=== PATIENT | male | born 1985 | race Caucasian/White ===

== ENCOUNTER 2021-05-31 15:50 | Emergency (ER) | payer BC ==
--- NOTE | 2021-05-31 16:01 | EDM.PDOC ---
ED HPI GENERAL MEDICAL PROBLEM - General Chief Complaint: Gastrointestinal Problem Stated Complaint: VOMITING, DEHYDRATED Time Seen by Provider: 05/31/21 15:58 Source of Information: Reports: Patient History Limitations: Reports: No Limitations - History of Present Illness INITIAL COMMENTS - FREE TEXT/NARRATIVE: HISTORY AND PHYSICAL: History of present illness: Patient is a 36-year-old male who presents to the emergency room with complaints of nausea, vomiting and dizziness since waking up this morning for work. He is concerned that he is dehydrated. Patient denies any fever, chills, headache, change in vision, syncope or near syncope. Denies any chest pain, back pain, shortness of breath or cough. Denies any abdominal pain, diarrhea, constipation or dysuria. Has not noted any blood in urine or stool. Patient states he has been on Suboxone over the past 3 years, no new changes. Denies any alcohol abuse, but does occasionally smoke marijuanna. States he has not had any marijuana in a few days. No recent travel. No recent exposure to anyone who has been ill. Review of systems: As per history of present illness and below otherwise all systems reviewed and negative. Past medical history: As per history of present illness and as reviewed below otherwise noncontributory. Surgical history: As per history of present illness and as reviewed below otherwise noncontributory. Social history: See social history for further information Family history: As per history of present illness and as reviewed below otherwise noncontributory. Physical exam: General: Well developed and thin appearing 36-year-old male. Alert and orientated x 3. Nontoxic in appearance but in moderate distress due to symptoms. Vital signs are stable and have been reviewed by me. Nursing notes were reviewed. HEENT: Atraumatic, normocephalic, pupils equal and reactive bilaterally, negative for conjunctival pallor or scleral icterus, mucous membranes dry/tacky, TMs normal bilaterally, throat clear, neck supple, nontender, trachea midline. No drooling or trismus noted. No meningeal signs. No hot potato voice noted. Lungs: Clear to auscultation bilaterally. No wheezes, rales, or rhonchi. Chest nontender. Normal work of breathing, no accessory muscles used. Heart: S1S2, regular rate and rhythm without overt murmur, gallops, or rubs. No JVD. No peripheral edema Abdomen: Soft, nondistended, nontender. Normoactive bowel sounds. Negative for masses or costovertebral tenderness. Skin: Pale, intact, warm, dry. No lesions or rashes noted. Hematologic: No petechiae or purpra. Mucosa appropriate color and normal nail bed color and refill. Extremities: Atraumatic, moves all extremities per self without difficulty or deficits, negative for cords or calf pain. Neurovascular unremarkable. Neuro: Awake, alert, oriented. Cranial nerves II through XII unremarkable. Cerebellum unremarkable. Motor and sensory unremarkable throughout. Exam nonfocal. Psychiatric: Mood and affect are appropriate. Normal thought process. Answering questions appropriately. Please note that the patient was seen and evaluated during the 2019 SARS-CoV-2 novel coronavirus pandemic period. Community viral transmission is ongoing at time of this encounter and the emergency department is operating under pandemic response procedures. Medical Decision Making: Patient is a 36-year-old male who presents to the emergency room with complaints of nausea, vomiting and concerns of dehydration. Symptoms started this morning and have not improved throughout the day. Patient is thrashing on the cot and unable to sit still as he states he cannot stop vomiting. Patient's vital signs are stable, we will do basic lab work along with lactate/blood cultures x2. Patient is agreeable to receiving fluids and Zofran. Patient does have a slight leukocytosis. No neutrophils. It is likely due to his dehydration. His lactate is 3.8. We will redraw this as he does feel much improved after IV fluids and Zofran. CT shows no acute process. Repeat lactate has greatly improved. Patient feels better, has not had any nausea or vomiting in the last hour. He feels comfortable being discharged home. I have talked with the patient about today's findings, in addition to providing specific details for plan of care. Reassessment at the time of disposition demonstrates that the patient is in no acute distress. The patient is stable for discharge, counseling was provided and we discussed in great detail signs and symptoms that would prompt them to return to the Emergency Department. Medication, follow up and supportive care measures were reviewed and discussed. Voices understanding and is agreeable to plan of care. Denies any further questions or concerns at this time. Diagnostics: CBC, CMP, Mg, Troponin, EKG, CXR, Lipase, UA, BC x 2, Lactate Therapeutics: IV fluids, Zofran Prescription: Zofran Impression: Nausea and Vomiting Plan: 1. You were evaluated today on an emergent basis. Your labs improved after IV fluids. Normal CT scan of abdomen/pelvis. Zofran has been prescribed, he can use this as needed for nausea management. [place] diet, advance as tolerated. Please make sure you are drinking small frequent sips of fluids to prevent dehydration. 2. You can alternate Tylenol and ibuprofen as needed for pain and fever management. 3. We encourage you to follow up with your primary care provider and/or recommended specialist in the next few days for re-evaluation and further care/management. 4. If your symptoms should worsen, new symptoms develop or any of the signs and symptoms we discussed should arise please return to the emergency room or call 911 (if needed). Definitive disposition and diagnosis as appropriate pending reevaluation and review of above. Bilateral Chest Pain Score (Numeric/FACES): 7 - Related Data Allergies Allergy/AdvReac Type Severity Reaction Status Date / Time amoxicillin Allergy Cannot Verified 05/31/21 16:04 Remember penicillin Allergy Cannot Verified 05/31/21 16:04 Remember Home Meds: Home Meds Buprenorphine HCl/Naloxone HCl [Buprenorphine-Nalox 8-2 mg Tab] 1 dose PO DAILY 05/31/21 [History] Ondansetron [Zofran ODT] 4 mg PO Q6H PRN #8 tab.dis 05/31/21 [Rx] Past Medical History - Past Health History Medical/Surgical History: Denies Medical/Surgical History ED ROS GENERAL - Review of Systems Review Of Systems: Comprehensive ROS is negative, except as noted in HPI. ED EXAM, GI/ABD - Physical Exam Exam: See Below (See dictation) Course - Vital Signs Last Recorded V/S: Last Vital Signs Temp 97.8 F 05/31/21 17:35 Pulse 54 L 05/31/21 17:35 Resp 18 05/31/21 17:35 BP 124/64 05/31/21 17:35 Pulse Ox 99 05/31/21 17:35 - Orders/Labs/Meds Orders: Active Orders 24 hr Category Date Time Status CULTURE BLOOD [BC] Stat Lab 05/31/21 17:51 Received CULTURE BLOOD [BC] Stat Lab 05/31/21 17:54 Results DRUG SCREEN, URINE [URCHEM] Stat Lab 05/31/21 17:54 Ordered REFLEX LACTIC ACID YES OR NO [CHEM] Routine Lab 05/31/21 17:38 Received UA RFX WICHO AND CULT IF INDIC [URIN] Stat Lab 05/31/21 16:04 Ordered Blood Culture x2 Reflex Set [OM.PC] Stat Oth 05/31/21 16:07 Ordered Labs: Laboratory Tests 05/31/21 05/31/21 05/31/21 Range/Units 16:40 16:40 16:40 WBC 13.67 H (4.0-11.0) K/uL RBC 4.60 (4.50-5.90) M/uL Hgb 14.9 (13.0-17.0) g/dL Hct 42.8 (38.0-50.0) % MCV 93.0 (80.0-98.0) fL MCH 32.4 H (27.0-32.0) pg MCHC 34.8 (31.0-37.0) g/dL RDW Std Deviation 46.2 (28.0-62.0) fl RDW Coeff of Aayush 14 (11.0-15.0) % Plt Count 333 (150-400) K/uL MPV 9.90 (7.40-12.00) fL Neut % (Auto) 78.4 (48.0-80.0) % Lymph % (Auto) 15.4 L (16.0-40.0) % Maverick % (Auto) 5.9 (0.0-15.0) % Eos % (Auto) 0.1 (0.0-7.0) % Baso % (Auto) 0.2 (0.0-1.5) % Neut # (Auto) 10.7 H (1.4-5.7) K/uL Lymph # (Auto) 2.1 (0.6-2.4) K/uL Maverick # (Auto) 0.8 (0.0-0.8) K/uL Eos # (Auto) 0.0 (0.0-0.7) K/uL Baso # (Auto) 0.0 (0.0-0.1) K/uL Nucleated RBC % 0.0 /100WBC Nucleated RBCs # 0 K/uL Sodium 139 (136-148) mmol/L Potassium 4.2 (3.5-5.1) mmol/L Chloride 102 (98-107) mmol/L Carbon Dioxide 16.1 L (21.0-32.0) mmol/L BUN 15 (7.0-18.0) mg/dL Creatinine 1.0 (0.8-1.3) mg/dL Est Cr Clr Drug Dosing 89.96 mL/min Estimated GFR (MDRD) > 60.0 ml/min Glucose 161 H (74-106) mg/dL Lactic Acid 3.8 H* (0.4-2.0) mmol/L Calcium 9.8 (8.5-10.1) mg/dL Magnesium 1.7 L (1.8-2.4) mg/dL Total Bilirubin 0.8 (0.2-1.0) mg/dL AST 25 (15-37) IU/L ALT 20 (14-63) IU/L Alkaline Phosphatase 127 H (46-116) U/L Troponin I < 0.050 (0.000-0.056) ng/mL Total Protein 7.0 (6.4-8.2) g/dL Albumin 4.0 (3.4-5.0) g/dL Globulin 3.0 (2.6-4.0) g/dL Albumin/Globulin Ratio 1.3 (0.9-1.6) Lipase 11 L (73-393) U/L 05/31/21 Range/Units 19:14 WBC (4.0-11.0) K/uL RBC (4.50-5.90) M/uL Hgb (13.0-17.0) g/dL Hct (38.0-50.0) % MCV (80.0-98.0) fL MCH (27.0-32.0) pg MCHC (31.0-37.0) g/dL RDW Std Deviation (28.0-62.0) fl RDW Coeff of Aayush (11.0-15.0) % Plt Count (150-400) K/uL MPV (7.40-12.00) fL Neut % (Auto) (48.0-80.0) % Lymph % (Auto) (16.0-40.0) % Maverick % (Auto) (0.0-15.0) % Eos % (Auto) (0.0-7.0) % Baso % (Auto) (0.0-1.5) % Neut # (Auto) (1.4-5.7) K/uL Lymph # (Auto) (0.6-2.4) K/uL Maverick # (Auto) (0.0-0.8) K/uL Eos # (Auto) (0.0-0.7) K/uL Baso # (Auto) (0.0-0.1) K/uL Nucleated RBC % /100WBC Nucleated RBCs # K/uL Sodium (136-148) mmol/L Potassium (3.5-5.1) mmol/L Chloride (98-107) mmol/L Carbon Dioxide (21.0-32.0) mmol/L BUN (7.0-18.0) mg/dL Creatinine (0.8-1.3) mg/dL Est Cr Clr Drug Dosing mL/min Estimated GFR (MDRD) ml/min Glucose (74-106) mg/dL Lactic Acid 1.7 (0.4-2.0) mmol/L Calcium (8.5-10.1) mg/dL Magnesium (1.8-2.4) mg/dL Total Bilirubin (0.2-1.0) mg/dL AST (15-37) IU/L ALT (14-63) IU/L Alkaline Phosphatase (46-116) U/L Troponin I (0.000-0.056) ng/mL Total Protein (6.4-8.2) g/dL Albumin (3.4-5.0) g/dL Globulin (2.6-4.0) g/dL Albumin/Globulin Ratio (0.9-1.6) Lipase (73-393) U/L Meds: Medications Discontinued Medications Generic Name Dose Route Start Last Admin Trade Name Freq PRN Reason Stop Dose Admin Sodium Chloride 1,000 mls @ 999 mls/hr 05/31/21 16:04 05/31/21 16:43 Normal Saline IV 05/31/21 17:04 999 mls/hr STAT ONE Administration Sodium Chloride 1,000 mls @ 999 mls/hr 05/31/21 17:43 05/31/21 18:15 Normal Saline IV 05/31/21 18:43 999 mls/hr STAT ONE Administration Iopamidol 75 ml 05/31/21 18:41 05/31/21 18:42 Iopamidol 755 Mg/Ml 500 Ml Multipack Bottle IVPUSH 05/31/21 18:42 75 ml ONETIME STA Administration Ondansetron HCl 4 mg 05/31/21 16:09 05/31/21 16:43 Ondansetron 4 Mg/2 Ml Sdv IVPUSH 05/31/21 16:10 4 mg ONETIME ONE Administration Departure - Departure Time of Disposition: 19:54 Disposition: Home, Self-Care 01 Clinical Impression: Nausea & vomiting Qualifiers: Vomiting type: unspecified Vomiting Intractability: non-intractable Qualified Code(s): R11.2 - Nausea with vomiting, unspecified - Discharge Information Prescriptions: Ondansetron [Zofran ODT] 4 mg PO Q6H PRN #8 tab.dis PRN Reason: Nausea Instructions: Nausea and Vomiting, Adult, [id number] Referrals: PCP,None [Primary Care Provider] - Forms: ED Department Discharge Additional Instructions: The following information is given to patients seen in the emergency department who are being discharged to home. This information is to outline your options for follow-up care. We provide all patients seen in our emergency department with a follow-up referral. The need for follow-up, as well as the timing and circumstances, are variable depending upon the specifics of your emergency department visit. If you don't have a primary care physician on staff, we will provide you with a referral. We always advise you to contact your personal physician following an emergency department visit to inform them of the circumstance of the visit and for follow-up with them and/or the need for any referrals to a consulting specialist. The emergency department will also refer you to a specialist when appropriate. This referral assures that you have the opportunity for follow-up care with a specialist. All of these measure are taken in an effort to provide you with optimal care, which includes your follow-up. Under all circumstances we always encourage you to contact your private physician who remains a resource for coordinating your care. When calling for follow-up care, please make the office aware that this follow-up is from your recent emergency room visit. If for any reason you are refused follow-up, please contact the [facility] Emergency Department at and asked to speak to the emergency department charge nurse. [facility] [address] [place] [address] [facility] [address] [place] [address] Thank you for choosing the [facility] emergency department in [place] for your medical needs today. It was a pleasure caring for you. Today you were seen in the emergency department for nausea and vomiting. 1. You were evaluated today on an emergent basis. Your labs improved after IV fluids. Normal CT scan of abdomen/pelvis. Zofran has been prescribed, he can use this as needed for nausea management. [place] diet, advance as tolerated. Please make sure you are drinking small frequent sips of fluids to prevent dehydration. 2. You can alternate Tylenol and ibuprofen as needed for pain and fever management. 3. We encourage you to follow up with your primary care provider and/or recommended specialist in the next few days for re-evaluation and further care/management. 4. If your symptoms should worsen, new symptoms develop or any of the signs and symptoms we discussed should arise please return to the emergency room or call 911 (if needed). Sepsis Event Note (ED) - Focused Exam Vital Signs: Vital Signs Temp Pulse Resp BP Pulse Ox 05/31/21 17:35 97.8 F 54 L 18 124/64 99 05/31/21 16:05 97.8 F 67 16 134/58 L 100 - My Orders Last 24 Hours: My Active Orders 05/31/21 16:04 UA RFX WICHO AND CULT IF INDIC [URIN] Stat 05/31/21 16:07 Blood Culture x2 Reflex Set [OM.PC] Stat 05/31/21 17:38 REFLEX LACTIC ACID YES OR NO [CHEM] Routine 05/31/21 17:51 CULTURE BLOOD [BC] Stat 05/31/21 17:54 CULTURE BLOOD [BC] Stat DRUG SCREEN, URINE [URCHEM] Stat - Assessment/Plan Last 24 Hours: My Active Orders 05/31/21 16:04 UA RFX WICHO AND CULT IF INDIC [URIN] Stat 05/31/21 16:07 Blood Culture x2 Reflex Set [OM.PC] Stat 05/31/21 17:38 REFLEX LACTIC ACID YES OR NO [CHEM] Routine 05/31/21 17:51 CULTURE BLOOD [BC] Stat 05/31/21 17:54 CULTURE BLOOD [BC] Stat DRUG SCREEN, URINE [URCHEM] Stat
[2021-05-31] MEDS ORDERED: Sodium Chloride 0.9% 1,000 ML IV ONE ×2 (16:04→17:43)
[2021-05-31] MEDS ORDERED: Ondansetron 4 MG/2 ML SDV IVPUSH ONE (16:09)
[2021-05-31 17:24] LABS: BLOOD UREA NITROGEN,BUN 15 mg/dL (7.0-18.0); CARBON DIOXIDE,CO2 16.1 mmol/L (21.0-32.0); CHLORIDE,CL 102 mmol/L (98-107); GLUCOSE RANDOM 161 mg/dL (74-106); LIPASE 11 U/L (73-393); POTASSIUM,K 4.2 mmol/L (3.5-5.1); SODIUM,NA 139 mmol/L (136-148)
--- NOTE | 2021-05-31 17:38 | PCM.EKG ---
#1 Interpretation EKG Date: 05/31/21 Time: 16:00 Rhythm: NSR Rate (Beats/Min): 63 ST-T: Normal
--- NOTE | 2021-05-31 18:12 | CR ---
INDICATION: Pain, shortness of breath TECHNIQUE: Portable upright AP view of the chest COMPARISON: None FINDINGS: The lungs are clear. There is no sizable pleural effusion or pneumothorax. The cardiomediastinal silhouette is normal. The visualized osseous structures are unremarkable. IMPRESSION: No acute intrathoracic process. Dictated by Augusta Jones MD @ 05/31/2021 6:10:02 PM (Electronically Signed)
[2021-05-31] MEDS ORDERED: Iopamidol 755 MG/ML 500 ML Multipack Bottle IVPUSH STA (18:41)
--- NOTE | 2021-05-31 19:06 | CT ---
Indication: Intractable nausea and vomiting Technique: Contrast enhanced axial CT imaging through the abdomen and pelvis. 75 mL Isovue 370 contrast agent was administered intravenously. Sagittal and coronal reconstructions are provided. Comparison: None Findings: No abnormalities are demonstrated relating to the liver, gallbladder, spleen, pancreas, adrenal glands, and kidneys. The portal vein is patent. The abdominal aorta is normal in caliber. There is no abdominal or pelvic lymphadenopathy. The urinary bladder is unremarkable. The stomach and duodenum are unremarkable. There is no small bowel wall thickening or abnormal distention. The appendix is noninflamed. There is no colonic wall thickening, mesenteric edema, or intraperitoneal free fluid. The osseous structures are unremarkable. The included lung bases are clear. Impression: No acute process demonstrated in the abdomen and pelvis. Please note that all CT scans at this facility use dose modulation, iterative reconstruction, and/or weight-based dosing when appropriate to reduce radiation dose to as low as reasonably achievable. Dictated by Augusta Jonse MD @ 05/31/2021 7:04:38 PM (Electronically Signed)
[2021-05-31 20:05] VITALS: BP 146/87; PULSE 85
== END 2021-05-31 20:05 | disposition home or self-care (01) ==
LOC: MW.ED 15:50
DX: R11.2 Nausea with vomiting, unspecified (principal); D72.829 Elevated white blood cell count, unspecified; Z88.0 Allergy status to penicillin
CPT/HCPCS: 36415; 71045; 74177; 80053; 83605; 83690; 83735; 84484; 85025; 87040; 93005; 96374; 99284; J2405; J7030; Q9967